=== PATIENT | male | born 1985 ===

== ENCOUNTER 2018-10-22 14:05 | Outpatient (CLI) | payer OTHER ==
[~2018-10-22] VITALS: Ht 180.3 cm; Wt 82.6 kg
== END 2018-10-22 14:20 | disposition home or self-care (01) ==
LOC: OFIC 805 14:05
DX: J30.89 Other allergic rhinitis (principal); K21.0 Gastro-esophageal reflux disease with esophagitis; J03.80 Acute tonsillitis due to other specified organisms